=== PATIENT | male | born 1950 | race Caucasian/White ===

== ENCOUNTER 2016-12-11 13:57 | Observation (INO) | payer MEDICARE, OTHER ==
[2016-12-11] MEDS ORDERED: ALPRAZOLAM 0.5 MG TABLET PO ONE (14:19)
[2016-12-11] MEDS ORDERED: NITROGLYCERIN 2% OINTMENT 1 GM PACKET TP ONE ×2 (14:28→19:00)
--- NOTE | 2016-12-11 14:29 | ER Document Report ---
ED General - General Stated Complaint: CHEST PAIN Time Seen by Provider: 12/11/16 14:18 Mode of Arrival: Medic Information source: Patient Notes: This is a 66-year-old man with a history of coronary artery disease (stent placed in 2000), hypertension who is brought to the ER by ambulance after an episode of chest pain. The patient has been usual state of health until yesterday when he was cleaning his fish pond and he states he felt "lousy". Patient states that he had some retrosternal chest pain radiating into the neck associated with shortness of breath and generalized weakness. The patient states that he had these symptoms for approximately an hour and they spontaneously resolved. Patient states that he was out shopping today when he started feeling the same way and getting the same type of discomfort. He apparently had taken an old nitroglycerin tablet that he had since 2012 and went to a local urgent care. EKG at the urgent care showed frequent PVCs and the patient was treated with aspirin and a nitro spray and the patient states that the pain gradually resolved after the nitroglycerin spray. Currently, he denies any type of chest pain. TRAVEL OUTSIDE OF THE [place] IN LAST 30 DAYS: No - HPI Onset: Just prior to arrival Onset/Duration: Sudden Quality of pain: No pain Severity: None Pain Level: Denies Associated symptoms: denies: Chills, Fever, Shortness of breath Exacerbated by: Denies Relieved by: Denies Similar symptoms previously: No Recently seen / treated by doctor: No - Related Data Allergies/Adverse Reactions: Penicillins Allergy (Unknown, Verified 08/29/13 12:52) hives/swelling Home Medications: Current Home Medications Aspirin [Aspirin EC] 81 mg PO DAILY 12/11/16 [History] Atorvastatin Calcium [Lipitor 80 mg Tablet] 80 mg PO QHS 12/11/16 [History] Clopidogrel Bisulfate [Plavix 75 mg Tablet] 75 mg PO DAILY 12/11/16 [History] Lisinopril [Zestril] 10 mg PO DAILY 12/11/16 [History] Nitroglycerin [Nitrostat] 0.4 mg PO Q5M 12/11/16 [History] Triamterene/Hydrochlorothiazid [Triamterene-Hctz 37.5-25 mg Cp] 1 cap PO DAILY 12/11/16 [History] Past Medical History - General Information source: Patient - Social History Smoking Status: Never Smoker Cigarette use (# per day): No Chew tobacco use (# tins/day): No Frequency of alcohol use: None Drug Abuse: None Lives with: Family Family History: Reviewed & Not Pertinent Patient has suicidal ideation: No Patient has homicidal ideation: No - Past Medical History Cardiac Medical History: Reports: Hx Coronary Artery Disease, Hx Hypercholesterolemia, Hx Hypertension Pulmonary Medical History: Denies: Hx Tuberculosis Past Surgical History: Reports: Hx Cardiac Surgery - stent x1 - Immunizations Hx Diphtheria, Pertussis, Tetanus Vaccination: Yes Hx Pneumococcal Vaccination: 06/14/11 Review of Systems - Review of Systems Constitutional: denies: See HPI, Fever EENT: No symptoms reported Cardiovascular: See HPI Respiratory: No symptoms reported Gastrointestinal: No symptoms reported Genitourinary: No symptoms reported Male Genitourinary: No symptoms reported Musculoskeletal: No symptoms reported Skin: No symptoms reported Hematologic/Lymphatic: No symptoms reported Neurological/Psychological: No symptoms reported Physical Exam - Vital signs Vitals: Resp Pulse Ox 13 100 12/11/16 14:09 12/11/16 14:09 Notes: Physical exam: GENERAL: 66-year-old man, alert and oriented 3, no acute distress HEAD: Atraumatic, normocephalic. EYES: Pupils equal round and reactive to light, extraocular movements intact, sclera anicteric, conjunctiva are normal. ENT: TMs normal, nares patent, oropharynx clear without exudates. Moist mucous membranes. NECK: Normal range of motion, supple without lymphadenopathy or JVD. LUNGS: Breath sounds clear to auscultation bilaterally and equal. No wheezes rales or rhonchi. HEART: Regular rate and rhythm without murmurs, rubs or gallops. ABDOMEN: Soft, normoactive bowel sounds. No tenderness to palpation. No guarding, no rebound. No masses appreciated. EXTREMITIES: Normal range of motion, no pitting or edema. No clubbing or cyanosis. NEUROLOGICAL: Cranial nerves II through XII grossly intact. Normal speech, normal gait. PSYCH: Normal mood, normal affect. SKIN: Warm, Dry, normal turgor, no rashes or lesions noted. Course - Vital Signs Vital signs: Temp Pulse Resp BP Pulse Ox 97.7 F 55 L 19 88/52 L 98 12/12/16 00:00 12/12/16 00:00 12/12/16 00:00 12/12/16 00:00 12/12/16 00:00 - Laboratory Result Diagrams: 12/11/16 15:00 12/11/16 15:00 Laboratory results interpreted by me: 12/11/16 12/11/16 12/11/16 15:00 15:00 15:00 MCV 98 H Creatine Kinase 361 H CK-MB (CK-2) 7.57 H - Diagnostic Test Radiology reviewed: Image reviewed, Reports reviewed - Patient has no infiltrates - EKG Interpretation by Me Rate: Normal Rhythm: NSR - EKG shows normal sinus rhythm with a ventricular rate of 86, no acute ST-T wave changes, there are PVCs. Discharge - Discharge Clinical Impression: chest pain Condition: Stable Disposition: ADMITTED OBSERVATION Admitting Provider: Hospitalist Unit Admitted: Telemetry - [facility] [place]
--- NOTE | 2016-12-11 15:01 | RADIOLOGY REPORT (SQ) ---
EXAM DESCRIPTION: CHEST SINGLE VIEW COMPLETED DATE/TIME: 12/11/2016 2:46 pm REASON FOR STUDY: chest pain COMPARISON: 08/29/2013 EXAM PARAMETERS: NUMBER OF VIEWS: One view. TECHNIQUE: Single frontal radiographic view of the chest acquired. RADIATION DOSE: NA LIMITATIONS: None. FINDINGS: LUNGS AND PLEURA: No opacities, masses or pneumothorax. No pleural effusion. MEDIASTINUM AND HILAR STRUCTURES: No masses. Contour normal. HEART AND VASCULAR STRUCTURES: Heart normal in size. Normal vasculature. BONES: No acute findings. HARDWARE: None in the chest. OTHER: No other significant finding. IMPRESSION: NO ACUTE RADIOGRAPHIC FINDING IN THE CHEST. TECHNICAL DOCUMENTATION: JOB ID: [id number]
[2016-12-11 15:14] LABS: ABSOLUTE EOSINOPHILS # (AUTO) 0.1 10^3/uL (0.0-0.6); ABSOLUTE LYMPHOCYTES (AUTO) 1.2 10^3/uL (0.5-4.7); ABSOLUTE MONOCYTES (AUTO) 0.4 10^3/uL (0.1-1.4); ABSOLUTE NEUT (AUTO) 4.2 10^3/uL (1.7-8.2); BASOPHILS % (AUTO) 0.4 % (0-2); EOSINOPHILS % (AUTO) 0.9 % (0-6); HEMATOCRIT 42.4 % (37.9-51.0); HEMOGLOBIN 14.1 g/dL (13.5-17.0); HGB HCT DIFFERENCE -0.1; LYMPHOCYTES % (AUTO) 20.8 % (13-45); MEAN CORPUSCULAR HEMOGLOBIN 32.5 pg (27.0-33.4); MEAN CORPUSCULAR HGB CONC 33.4 g/dL (32.0-36.0); MEAN CORPUSCULAR VOLUME 98 fl (80-97); MONOCYTES % (AUTO) 6.6 % (3-13); RED BLOOD COUNT 4.35 10^6/uL (4.35-5.55); RED CELL DISTRIBUTION WIDTH 13.7 % (11.5-14.0); SEGMENTED NEUTROPHILS % (AUTO) 71.3 % (42-78); WHITE BLOOD COUNT 5.8 10^3/uL (4.0-10.5)
[2016-12-11 15:24] LABS: PROTHROMBIN TIME 13.6 SEC (11.4-15.4)
[2016-12-11 15:27] LABS: ALANINE AMINOTRANSFERASE 46 U/L (21-72); ALBUMIN 4.1 g/dL (3.5-5.0); ALKALINE PHOSPHATASE 41 U/L (38-126); ANION GAP 11 (5-19); ASPARTATE AMINO TRANSFERASE 30 U/L (17-59); BILIRUBIN,DIRECT 0.3 mg/dL (0.0-0.4); BILIRUBIN,TOTAL 0.6 mg/dL (0.2-1.3); BLOOD UREA NITROGEN 14 mg/dL (7-20); CALCIUM 9.1 mg/dL (8.4-10.2); CARBON DIOXIDE 23 mmol/L (22-30); CHLORIDE 105 mmol/L (98-107); CREATINE KINASE 361 U/L (55-170); CREATININE RESULT 0.61 mg/dL (0.52-1.25); GLUCOSE 104 mg/dL (75-110); POTASSIUM 3.8 mmol/L (3.6-5.0); SODIUM 138.8 mmol/L (137-145); TOTAL PROTEIN 6.8 g/dL (6.3-8.2)
[2016-12-11 15:38] LABS: CREATINE KINASE MB 7.57 ng/mL (<4.55); TROPONIN I 0.015 ng/mL
[2016-12-11] MEDS ORDERED: ACETAMINOPHEN 325 MG TABLET PO PRN (17:37)
[2016-12-11] MEDS ORDERED: ONDANSETRON HCL INJ/PF 4 MG/2 ML SDV IV PRN (17:42)
[2016-12-11] MEDS ORDERED: NITROGLYCERIN 0.4 MG/TAB 25 TAB/BOTTLE SL PRN (18:01)
--- NOTE | 2016-12-11 18:01 | PDOC H&P ---
History of Present Illness Admission Date/PCP: 12/11/16 16:39 ISHAN NICE MD Patient complains of: Chest pain History of Present Illness: MIC CROW is a 66 year old male, with history of coronary artery disease with stent placement was cleaning his aquarium yesterday and upon completing started to develop precordial chest pain without any radiation associated with some shortness of breath and nausea with generalized weakness and some mild dizziness. Patient went to rest and the symptoms resolved. There is no vomiting. There is no palpitation. The following morning the patient was able to go out to have some groceries done shopping for food and eventually started to develop the chest pain again. Patient went home and blood pressure was elevated with systolic in the 150 and diastolic in the 110. He could not bring his blood pressure down and therefore patient was brought to the emergency room for evaluation. Patient initially seen at an urgent care where the monitor shows premature ventricular contractions and therefore the patient was transferred to the hospital for further evaluation. In the emergency room CPK total was mildly elevated as well as the MB fraction but the troponin was negative. The patient was then referred for admission. Patient last known stress test was about a year ago. He is scheduled to have another stress test next month with Dr. Elena in [place]. Past Medical History Cardiac Medical History: Reports: Coronary Artery Disease, Hyperlipidema, Hypertension Pulmonary Medical History: Reports: Asthma Denies: Tuberculosis Past Surgical History Past Surgical History: Reports: Cardiac Catheterization, Other - Stent placement Social History Information Source: Patient Smoking Status: Never Smoker Frequency of Alcohol Use: None Hx Recreational Drug Use: No Drugs: None Hx Prescription Drug Abuse: No Family History Family History: CAD, Hypertension Parental Family History Reviewed: Yes Children Family History Reviewed: Yes Sibling(s) Family History Reviewed.: Yes Medication/Allergy Home Medications: Aspirin [Aspirin EC] 81 mg PO DAILY 12/11/16 Clopidogrel Bisulfate [Plavix 75 mg Tablet] 75 mg PO DAILY 12/11/16 Lisinopril [Zestril] 10 mg PO DAILY 12/11/16 Nitroglycerin [Nitrostat] 0.4 mg PO Q5M 12/11/16 Triamterene/Hydrochlorothiazid [Triamterene-Hctz 37.5-25 mg Cp] 1 cap PO DAILY 12/11/16 Allergies/Adverse Reactions: Penicillins Allergy (Unknown, Verified 03/18/14 12:52) hives/swelling Review of Systems Constitutional: PRESENT: weakness - Generalized. ABSENT: chills, fatigue, fever (s), headache(s), weight gain, weight loss Eyes: ABSENT: visual disturbances Ears: ABSENT: hearing changes Nose, Mouth, and Throat: ABSENT: headache(s), mouth pain, sore throat Cardiovascular: PRESENT: chest pain, palpitations - Occasional. ABSENT: dyspnea on exertion, edema, orthropnea Respiratory: ABSENT: cough, hemoptysis, sputum Gastrointestinal: PRESENT: nausea. ABSENT: abdominal pain, bloating, constipation, diarrhea, hematemesis, hematochezia, melena, vomiting Genitourinary: ABSENT: dysuria, hematuria Musculoskeletal: ABSENT: joint swelling Integumentary: ABSENT: pruritus, rash, wounds Neurological: ABSENT: abnormal gait, abnormal speech, confusion, dizziness, focal weakness, syncope Psychiatric: ABSENT: anxiety, depression, homidical ideation, suicidal ideation Endocrine: ABSENT: cold intolerance, heat intolerance, polydipsia, polyuria Hematologic/Lymphatic: ABSENT: easy bleeding, easy bruising Physical Exam Vital Signs: Temp Pulse Resp BP Pulse Ox 97.7 F 69 16 133/92 H 100 12/11/16 14:18 12/11/16 14:18 12/11/16 15:01 12/11/16 15:01 12/11/16 15:01 General appearance: PRESENT: no acute distress, cooperative, well-developed, well-nourished Head exam: PRESENT: atraumatic, normocephalic Eye exam: PRESENT: conjunctiva pink, EOMI, PERRLA. ABSENT: scleral icterus Ear exam: PRESENT: normal external ear exam. ABSENT: drainage Mouth exam: PRESENT: moist, neck supple, tongue midline Throat exam: ABSENT: post pharyngeal erythema, tonsillar erythema Neck exam: ABSENT: carotid bruit, JVD, lymphadenopathy, thyromegaly Respiratory exam: PRESENT: clear to auscultation romelia, unlabored. ABSENT: rales , rhonchi, wheezes Cardiovascular exam: PRESENT: RRR, +S1, +S2. ABSENT: diastolic murmur, gallop, rubs, systolic murmur Pulses: PRESENT: normal dorsalis pedis pul Vascular exam: PRESENT: normal capillary refill GI/Abdominal exam: PRESENT: normal bowel sounds, soft. ABSENT: distended, guarding, mass, organolmegaly, rebound, tenderness Rectal exam: PRESENT: deferred Extremities exam: PRESENT: full ROM. ABSENT: calf tenderness, clubbing, pedal edema Neurological exam: PRESENT: alert, awake, oriented to person, oriented to place , oriented to time, oriented to situation Psychiatric exam: PRESENT: appropriate affect, normal mood. ABSENT: homicidal ideation, suicidal ideation Skin exam: PRESENT: dry, intact, warm. ABSENT: cyanosis, rash Results Impressions: Chest X-Ray 12/11/16 14:18 IMPRESSION: NO ACUTE RADIOGRAPHIC FINDING IN THE CHEST. Assessment & Plan - Diagnosis (1) Chest pain Qualifiers: Chest pain type: unspecified Qualified Code(s): R07.9 - Chest pain, unspecified Is this a current diagnosis for this admission?: Yes (2) PVCs (premature ventricular contractions) Is this a current diagnosis for this admission?: Yes (3) Coronary artery disease Qualifiers: Coronary Disease-Associated Artery/Lesion type: [place] artery [place] vs. transplanted heart: [place] heart Associated angina: angina presence unspecified Qualified Code(s): I25.10 - Atherosclerotic heart disease of [place] coronary artery without angina pectoris Is this a current diagnosis for this admission?: Yes (4) Essential hypertension Is this a current diagnosis for this admission?: Yes (5) Hyperlipidemia Qualifiers: Hyperlipidemia type: unspecified Qualified Code(s): E78.5 - Hyperlipidemia, unspecified Is this a current diagnosis for this admission?: Yes (6) History of asthma Is this a current diagnosis for this admission?: Yes - Time Time Spent: 50 to 70 Minutes - Plan Summary Plan Summary: The patient will be admitted to observation. I will continue the aspirin and Plavix. I will add nitroglycerin. Supplemental oxygen and Lovenox for DVT prophylaxis. We will obtain a magnesium level. Give extra dose of potassium to bring level above 4. We will consult cardiology for further evaluation. Further testing depends in the initial evaluations outlined above.
[2016-12-11] MEDS ORDERED: POTASSIUM CHLORIDE 10 MEQ TABLET.SA PO ONE (18:30)
[2016-12-11] MEDS: DOCUSATE SODIUM 100 MG CAPSULE PO SCH (18:36)
--- NOTE | 2016-12-11 20:52 | EKG REPORT ---
SEVERITY:- ABNORMAL ECG - SINUS RHYTHM MULTIPLE VENTRICULAR PREMATURE COMPLEXES BORDERLINE PROLONGED QT INTERVAL : Confirmed by: Tobias Lindquist 11-Dec-2016 20:51:51
[2016-12-11] MEDS: NITROGLYCERIN 2% OINTMENT 1 GM PACKET TP SCH (21:36)
[2016-12-11 23:02] LABS: CREATINE KINASE MB 5.12 ng/mL (<4.55); TROPONIN I 0.013 ng/mL
[2016-12-12] MEDS ORDERED: NITROGLYCERIN 2% OINTMENT 1 GM PACKET TP SCH
[2016-12-12] MEDS: NITROGLYCERIN 2% OINTMENT 1 GM PACKET TP SCH ×2 (02:43→08:20)
[2016-12-12 03:41] LABS: CREATINE KINASE MB 4.08 ng/mL (<4.55); TROPONIN I 0.014 ng/mL
[2016-12-12] MEDS ORDERED: LANSOPRAZOLE 30 MG TAB.RAP.DR PO SCH (06:00)
[2016-12-12] MEDS: DOCUSATE SODIUM 100 MG CAPSULE PO SCH (09:12)
[2016-12-12] MEDS ORDERED: (PENDING PHARMACY ID) (Triamterene/Hydrochlorothiazid [Triamterene-Hctz 37.5-25 Mg Cp] 1 C PO SCH (10:00)
[2016-12-12] MEDS ORDERED: LISINOPRIL 10 MG TABLET PO SCH (10:00)
[2016-12-12] MEDS ORDERED: ASPIRIN 81 MG TABLET, ENT COATED PO SCH (10:00)
[2016-12-12] MEDS ORDERED: CLOPIDOGREL BISULFATE 75 MG TABLET PO SCH (10:00)
[2016-12-12] MEDS ORDERED: TRIAMTERENE/HYDROCHLOROTHIAZIDE 37.5-25 MG TABLET PO SCH (10:00)
[2016-12-12] MEDS ORDERED: ENOXAPARIN SODIUM INJ 40 MG/0.4 ML DISP.SYRIN SUBCUT SCH (10:00)
[2016-12-12 10:11] LABS: CREATINE KINASE MB 4.41 ng/mL (<4.55)
[2016-12-12 10:14] LABS: TROPONIN I < 0.012 ng/mL
[2016-12-12] MEDS ORDERED: MAGNESIUM OXIDE 400 MG TABLET PO ONE (12:12)
--- NOTE | 2016-12-12 12:18 | PDOC DISCHARGE SUMMARY ---
General - Admit/Disc Date/PCP Admission Date/Primary Care Provider: 12/11/16 17:37 ISHAN NICE MD Discharge Date: 12/12/16 - Discharge Diagnosis (1) Chest pain Is this a current diagnosis for this admission?: Yes (2) PVCs (premature ventricular contractions) Is this a current diagnosis for this admission?: Yes (3) Coronary artery disease Is this a current diagnosis for this admission?: Yes (4) Essential hypertension Is this a current diagnosis for this admission?: Yes (5) Hyperlipidemia Is this a current diagnosis for this admission?: Yes (6) History of asthma Is this a current diagnosis for this admission?: Yes - Additional Information Resuscitation Status: Full Code Discharge Diet: Cardiac Discharge Activity: Activity As Tolerated, Balance Activity w/Rest Home Medications: Aspirin [Aspirin EC] 81 mg PO DAILY 12/11/16 Atorvastatin Calcium [Lipitor 80 mg Tablet] 80 mg PO QHS 12/11/16 Clopidogrel Bisulfate [Plavix 75 mg Tablet] 75 mg PO DAILY 12/11/16 Lisinopril [Zestril] 10 mg PO DAILY 12/11/16 Nitroglycerin [Nitrostat 0.4 mg (1/150 Gr) Tabs 25/Bottle] 1 tab SL Q5MP PRN #1 bottle 12/12/16 Additional Information: Stress test as outpatient with Dr. Elena in 1-2 weeks. History of Present Illness Patient complains of: Chest pain History of Present Illness: MIC CROW is a 66 year old male, with history of coronary artery disease with stent placement was cleaning his aquarium yesterday and upon completing started to develop precordial chest pain without any radiation associated with some shortness of breath and nausea with generalized weakness and some mild dizziness. Patient went to rest and the symptoms resolved. There is no vomiting. There is no palpitation. The following morning the patient was able to go out to have some groceries done shopping for food and eventually started to develop the chest pain again. Patient went home and blood pressure was elevated with systolic in the 150 and diastolic in the 110. He could not bring his blood pressure down and therefore patient was brought to the emergency room for evaluation. Patient initially seen at an urgent care where the monitor shows premature ventricular contractions and therefore the patient was transferred to the hospital for further evaluation. In the emergency room CPK total was mildly elevated as well as the MB fraction but the troponin was negative. The patient was then referred for admission. Patient last known stress test was about a year ago. He is scheduled to have another stress test next month with Dr. Elena in [place]. Hospital Course Hospital Course: The patient was admitted to telemetry. The patient was given supplemental potassium. Patient's PVCs improved magnesium was 1.8 and the supplemental magnesium was likewise given. Serial cardiac enzymes were obtained and they were negative for myocardial infarction. Cardiology was consulted and recommended stress test on an outpatient basis and discontinuation of the diuretic. The patient's chest pain resolved. No significant arrhythmia recorded on the monitor. The rest of the hospital stays unremarkable. Patient advised to avoid heavy physical activity for now up until evaluated by his manager business information. Family at bedside who is agreeable with the plan. Physical Exam Vital Signs: Temp Pulse Resp BP Pulse Ox 97.8 F 50 L 18 123/86 H 100 12/12/16 08:14 12/12/16 08:14 12/12/16 08:14 12/12/16 08:14 12/12/16 08:14 Intake & Output 12/11/16 12/12/16 12/13/16 06:59 06:59 06:59 Intake Total 240 Balance 240 Weight 85.5 kg General appearance: PRESENT: no acute distress, cooperative Head exam: PRESENT: normocephalic Eye exam: PRESENT: EOMI Mouth exam: PRESENT: moist, neck supple Neck exam: ABSENT: JVD Respiratory exam: PRESENT: clear to auscultation romelia. ABSENT: rhonchi, wheezes Cardiovascular exam: PRESENT: RRR. ABSENT: gallop GI/Abdominal exam: PRESENT: normal bowel sounds, soft. ABSENT: distended, tenderness Extremities exam: ABSENT: pedal edema Neurological exam: PRESENT: alert, awake, oriented to person, oriented to place , oriented to time, oriented to situation Skin exam: PRESENT: dry, warm. ABSENT: cyanosis Results Laboratory Results: 12/11/16 12/11/16 12/12/16 22:00 22:00 03:07 Creatine Kinase 231 H 193 H CK-MB (CK-2) 5.12 H Troponin I 0.013 12/12/16 12/12/16 12/12/16 03:07 08:43 08:43 Creatine Kinase 188 H CK-MB (CK-2) 4.08 4.41 Troponin I 0.014 < 0.012 Impressions: Chest X-Ray 12/11/16 14:18 IMPRESSION: NO ACUTE RADIOGRAPHIC FINDING IN THE CHEST. Qualifiers PATEINT BEING DISCHARGED WITH ANY OF THE FOLLOWING DIAGNOSIS?: No Plan Discharge Plan: Follow-up with primary care physician in 1 week. Follow-up with manager business information in 1 week. Time Spent: Less than 30 Minutes
[2016-12-12 12:44] VITALS: BP 141/85
--- NOTE | 2016-12-12 13:46 | EKG REPORT ---
SEVERITY:- NORMAL ECG - SINUS RHYTHM : Confirmed by: Tobias Lindquist 12-Dec-2016 13:45:01
--- NOTE | 2016-12-13 01:08 | CONSULTATION REPORT E ---
Consultation Report NAME: MIC CROW : 1950 AGE: 66Y DATE: 12/12/2016 ROOM: 406 A TO: FRANSISCA ALEXANDER M.D. FROM: Requesting Physician REASON FOR CONSULTATION: Patient with throat tightness which he claims is similar to his prior anginal symptoms, which led to a stent placement, and bradycardiac and hypotension secondary to nitroglycerin. HISTORY: The patient is a 66-year-old male with known history of hypertension, who states that some years ago he had throat tightness, and subsequently workup led to him having a cardiac catheterization, and he states that he had a lesion in the bifurcation of the artery to the back of the heart and had a stent placement. Most likely, he had a stent to the distal RCA. Since then, the patient had been doing good. The patient states yesterday he went to the [employer] and went to the bank and subsequently was sitting at home when he had a throat tightness which lasted for about an hour. He also states that he had some dysphagia along with that, but that there was no shortness of breath, no diaphoresis, no palpitations, no dizziness. The patient states that these symptoms were similar to what he had when he had the stent in the coronary artery. He denies any palpitations, PND, orthopnea, leg edema, dizziness, syncope, or near syncope. The patient yesterday was given *------* nitroglycerin paste 0.5 grams to the chest wall, and the patient's heart rate went down to 40, and his blood pressure dropped to 80, suggesting a paradoxical reaction to nitroglycerin, but also noted the patient was dehydrated, since the patient is on triamterene. He denies any past history of CT. There is no TIA or CVA symptoms. There is no leg edema. Note, the patient's throat tightness, as per the patient, that he recollects that it did not increase with exertion. PAST MEDICAL HISTORY: Positive for hypertension. There is no history of diabetes mellitus or thyroid disease. There is no history of GI bleed, no history of peptic ulcer disease, no history of chronic kidney disease, no history of diverticulitis. No history of TIA or CVA. No history of anxiety or depression. Of note, the patient has a history of allergic asthma, but has not had an exacerbation in some time. He states he usually gets that when he is around people who smoke. As mentioned earlier, he had throat tightness which led to his cardiac workup, and he had a stent which, as per the patient's description, is in the distal RCA. PAST SURGICAL HISTORY: 1. Positive for the placement of rods and lumbar fusion in the lumbosacral region. 2. He also has had cardiac catheterization and stent placement. FAMILY HISTORY: Positive for coronary artery disease and hypertension. SOCIAL HISTORY: The patient never smoked. There is no history of ETOH abuse. CODE STATUS: The patient is a full code. His is his surrogate healthcare decision maker. ALLERGIES: THE PATIENT IS ALLERGIC TO PENICILLINS. MEDICATIONS: 1. Nitroglycerin 0.4 mg p.o. q. 5 minutes. 2. Nitroglycerin topical 1 gram, which has been stopped. 3. Potassium chloride 40 mEq p.o. x1. 4. Tylenol 650 mg p.o. q. 4 hours p.r.n. 5. Zofran 4 mg IV q. 4 hours p.r.n. 6. Colace 100 mg p.o. b.i.d. 7. Lansoprazole 30 mg p.o. q. 6:00 a.m. 8. Aspirin 81 mg p.o. daily. 9. Plavix 75 mg p.o. daily. 10. Lisinopril 10 mg p.o. daily. 11. Lovenox 40 mg subcutaneously daily. 12. Triamterene/hydrochlorothiazide 37.5/25 one capsule p.o. daily. 13. Magnesium oxide 80 mg p.o. x1. REVIEW OF SYSTEMS: CONSTITUTIONAL: Denies any fevers, chills, or rigors. There is no generalized weakness or fatigue. HEAD: No history of headache or head injury. No history of dizziness. EYES: No history of amblyopia or diplopia. No history of amaurosis fugax. EARS: No history of hearing loss. No history of vertigo. No tinnitus. No history of recurrent ear infections. NOSE: No history of deviated nasal septum. There is no nasal polyp. There is no history of nosebleeds. MOUTH: No history of altered taste sensation. No ulcers in the mouth. No bleeding from gums. THROAT: There is no *------* oropharynx. There are no exudates. SKIN: There are no skin rashes. There is no urticaria. There are no skin lesions. NECK: *------*pain or swelling in the neck. There is no lymphadenopathy. There is no goiter. LUNGS: No history of wheezing. 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 No history of sleep apnea. No history of hemoptysis. No history of hematemesis. No history of pulmonary embolism. No history of recent cough or sputum production. No history of recent wheezing. CARDIAC: History of hypertension. History of coronary artery disease. No history of CT. History of stent, most like to the distal right coronary artery. Symptoms of throat tightness which he says came before his anginal symptoms. There is no history of congestive heart failure. There is no PND, orthopnea, or leg edema. There is no history of palpitations, syncope, or near syncope. GASTROINTESTINAL: No history of peptic ulcer disease. No history of GI bleed. No history of fatty food intolerance. No history of abdominal pain. No history of cirrhosis. No history of jaundice. MUSCULOSKELETAL: The patient has low back pain but has no collagen vascular disease. RENAL: No history of chronic kidney disease. No history of hematuria, pyuria, or dysuria. No history of symptoms of UTI. ENDOCRINE: No history of diabetes mellitus. No history of thyroid disease. No history of polyuria. No history of heat or cold intolerance. CENTRAL NERVOUS SYSTEM: No history of sleep apnea. No history of headaches, migraines, or seizures. No history of TIA or CVA. No history of gait imbalance. PSYCHIATRIC: No history of anxiety or depression. No history of suicidal ideation. No history of homicidal ideation. VASCULAR: No history of calf or buttock claudication. No history of DVT. HEMATOLOGICAL: No history of bleeding diathesis. No history of clotting disorders. The rest of the review of systems was negative for any fever, chills, or rigors. PHYSICAL EXAMINATION: GENERAL: The patient is well built and well nourished. At present, no acute distress. VITAL SIGNS: He is afebrile with a temperature of 97.8 degrees Fahrenheit. His pulse is 51 beats per minute, blood pressure is 123/86, respirations are 18 per minute, and O2 sat is 100% on room air. HEENT: Head is atraumatic, normocephalic. Eyes: Pupils are equal, round, and regular, reactive to light and accommodation. Extraocular movements are normal. There is no conjunctival pallor. There is no scleral icterus. Ears: Tympanic membranes are intact. External auditory canals are clear. There is no lesions of the pinnae. Nose: There is no deviated nasal septum. There is no inflammation of the nasal mucous membrane. There are no nasal polyps. Mouth: Mucous membranes of the mouth are dry. Tongue is dry. He has no ulcers. There is no bleeding from the gums. Throat: There is no redness of the oropharynx. There are no exudates. SKIN: There are no skin rashes. There are no skin lesions. NECK: Supple. There is no JVD. Carotids are equal. There is no bruit. There is no lymphadenopathy. There is no goiter. Trachea is central. LUNGS: Clear to auscultation and percussion without any axillary muscles of special use. There is no chest-wall tenderness. Lungs are without any rhonchi, rales, or wheezing. HEART: S1 and S2 are heard normally. S1 is of normal intensity. There is no S3 gallop. There is no S4 gallop. There is a systolic murmur in the left sternal border and the apex. There is no rub. ABDOMEN: Soft, nontender. There is no hepatosplenomegaly. Bowel sounds are well heard. There are no tender areas or masses. There is no rebound, guarding, or rigidity. EXTREMITIES: Femorals are well felt. Leg pulses are well felt. There is no pedal edema. There is no DVT or cellulitis. There is no cyanosis or clubbing. Capillary refill is normal. CENTRAL NERVOUS SYSTEM: The patient is conscious, awake, alert, oriented x3, with no focal deficits. PSYCHIATRIC: The patient's judgement and insight are intact. His affect is normal. DIAGNOSTIC STUDIES: The patient's chest x-ray is negative for any acute process. I have reviewed the x-ray myself. The patient's EKG has been reviewed by myself. It shows sinus rhythm, multiple PVCs, borderline prolonged QT interval. No acute changes. His EKG done today is sinus rhythm, within normal limits. The patient's white count is 5800, hemoglobin is 14.1, hematocrit is 42.4, and his platelet count is 215,000. The patient's protime is 13.6, INR is 0.97. The patient's CPK-MB was initially high at 5.12, but his troponin-I is negative x3. The rest of the CPK-MB x2 is negative. The patient's sodium is 138.8, potassium 3.8, chloride is 105, CO2 is 23. The patient's BUN is 14, creatinine 0.61, GFR is greater than 60. Glucose is 104, calcium is 9.1, magnesium is 1.8. His liver function tests are normal. His total protein is 6.8, albumin is 4.1. IMPRESSION: 1. Atypical symptoms, throat tightness, which the patient claims to be what he had when he had the stent a few years ago. 2. Dehydration. 3. Bradycardia and hypotension secondary to *------*, most likely secondary to patient being dehydrated, but cannot entirely exclude paradoxical reaction to nitroglycerin. 4. Coronary artery disease. No history of myocardial infarction. 5. Coronary artery disease with history of stent placement, most likely the right coronary artery. 6. Hypertension, well controlled. 7. Hyperlipidemia. 8. Chronic back pain. RECOMMENDATION: I will stop the patient's triamterene, since the patient is dehydrated. Would recommend continuing the patient's aspirin and Plavix. Continue the patient's lisinopril. In view of the patient's bradycardia and hypotension, would not use nitrate products. Would give the patient sublingual nitroglycerin; the patient has been asked to sit down and take nitroglycerin 1 sublingually q. 5 minutes, and if he has to take 2 or more, he needs to report to the emergency room. Also, I have given him my cell number, until he can contact his topographical surveyor Dr. Elena in [facility]. The patient has an appointment for a stress test at the end of December. I have asked the patient and family to contact Dr. Elena and see if he can perform this stress test. Also, I will try to get a hold of Dr. Elena if I can on Wednesday, and explain to him to see if he can do the stress test. Note, the patient was seen at 9:00 a.m. Forty minutes were spent on the patient, more than 50% of the time spent on direct patient care. Medications have been reviewed and adjusted. Also, coordination of care done with other caregiving providers, and formulated a care plan. The patient is desirous of going home; I let him go home. Note that this case involved highly-complex medical decision making, in view of the bradycardia, the patient's atypical chest symptoms, which he claims to be his anginal symptoms, and with a history of a right coronary artery stent most likely. I cannot be sure about the location of the stent. All of the above discussed with the patient and patient's family, all questions answered. Will sign off the case. Thanking you. DICTATING PHYSICIAN: FRANSISCA ALEXANDER M.D. [id number] Y#: [id number] ID: [id number] JOB#: [id number] ACCT: [id number] cc:FRANSISCA ALEXANDER M.D. >
== END 2016-12-12 12:50 | disposition home or self-care (01) ==
LOC: ER 13:57 → EH 16:39 → UNDOADMOB 16:39 → EH 17:37 → 4N 19:22
DX: R07.2 Precordial pain (principal); I49.3 Ventricular premature depolarization; I25.10 Atherosclerotic heart disease of native coronary artery without angina pectoris; I10 Essential (primary) hypertension; E78.5 Hyperlipidemia, unspecified; R13.10 Dysphagia, unspecified; E86.0 Dehydration; I95.2 Hypotension due to drugs; R00.1 Bradycardia, unspecified; T46.3X5A Adverse effect of coronary vasodilators, initial encounter; Y92.239 Unspecified place in hospital as the place of occurrence of the external cause; Z87.09 Personal history of other diseases of the respiratory system; G89.29 Other chronic pain; M54.5 Low back pain; R19.8 Other specified symptoms and signs involving the digestive system and abdomen; Z79.899 Other long term (current) drug therapy; Z95.5 Presence of coronary angioplasty implant and graft; Z79.82 Long term (current) use of aspirin; Z82.49 Family history of ischemic heart disease and other diseases of the circulatory system; Z88.0 Allergy status to penicillin; Z98.1 Arthrodesis status
CPT/HCPCS: 93005 ×2; 99285; 36415 ×2; 82553 ×2; 82550 ×2; 83735; 85025; 85610; 80053; 84484 ×2; 71010; 93010 ×2; G0378 ×3; A9270 ×10; J1650; J3490 ×2

== ENCOUNTER → 2017-09-24 | Outpatient (CLI) | payer MEDICARE, OTHER ==
[2017-09-24 13:25] LABS: HEMATOCRIT 42.6 % (37.9-51.0); HEMOGLOBIN 14.3 g/dL (13.5-17.0); MEAN CORPUSCULAR HEMOGLOBIN 33.1 pg (27.0-33.4); MEAN CORPUSCULAR HGB CONC 33.7 g/dL (32.0-36.0); MEAN CORPUSCULAR VOLUME 98 fl (80-97); PLATELET COUNT 238 10^3/uL (150-450); RED BLOOD COUNT 4.33 10^6/uL (4.35-5.55); RED CELL DISTRIBUTION WIDTH 14.2 % (11.5-14.0); WHITE BLOOD COUNT 4.4 10^3/uL (4.0-10.5)
[2017-09-24 13:48] LABS: ALANINE AMINOTRANSFERASE 49 U/L (21-72); ALBUMIN 4.5 g/dL (3.5-5.0); ALKALINE PHOSPHATASE 35 U/L (38-126); ANION GAP 11 (5-19); ASPARTATE AMINO TRANSFERASE 31 U/L (17-59); BILIRUBIN,DIRECT 0.3 mg/dL (0.0-0.4); BILIRUBIN,TOTAL 0.7 mg/dL (0.2-1.3); BLOOD UREA NITROGEN 12 mg/dL (7-20); CARBON DIOXIDE 28 mmol/L (22-30); CHLORIDE 104 mmol/L (98-107); CHOLESTEROL 164.81 mg/dL (0-200); CREATINE KINASE 261 U/L (55-170); GLUCOSE 108 mg/dL (75-110); POTASSIUM 4.3 mmol/L (3.6-5.0); SODIUM 143.2 mmol/L (137-145); TOTAL PROTEIN 7.3 g/dL (6.3-8.2); TRIGLYCERIDES 66 mg/dL (<150)
[2017-09-24 13:59] LABS: DIRECT LDL 77 mg/dL (<100)
== END ==
LOC: OD 12:29
PROVIDERS: ATTEND Obstetrics & Gynecology
DX: E78.5 Hyperlipidemia, unspecified (principal); I10 Essential (primary) hypertension; I25.2 Old myocardial infarction; Z79.899 Other long term (current) drug therapy
CPT/HCPCS: 36415; 80053; 80061; 82550; 85027

== ENCOUNTER → 2018-12-05 | Outpatient (CLI) | payer MEDICARE, OTHER ==
[2018-12-05 11:55] LABS: ABSOLUTE LYMPHOCYTES (AUTO) 1.2 10^3/uL (0.5-4.7); ABSOLUTE MONOCYTES (AUTO) 0.4 10^3/uL (0.1-1.4); ABSOLUTE NEUT (AUTO) 2.3 10^3/uL (1.7-8.2); BASOPHILS % (AUTO) 0.4 % (0-2); EOSINOPHILS % (AUTO) 1.1 % (0-6); HEMOGLOBIN 15.1 g/dL (13.5-17.0); LYMPHOCYTES % (AUTO) 29.4 % (13-45); MEAN CORPUSCULAR HEMOGLOBIN 33.5 pg (27.0-33.4); MEAN CORPUSCULAR HGB CONC 34.2 g/dL (32.0-36.0); MEAN CORPUSCULAR VOLUME 98 fl (80-97); MONOCYTES % (AUTO) 10.4 % (3-13); PLATELET COUNT 230 10^3/uL (150-450); RED BLOOD COUNT 4.49 10^6/uL (4.35-5.55); RED CELL DISTRIBUTION WIDTH 14.8 % (11.5-14.0); SEGMENTED NEUTROPHILS % (AUTO) 58.7 % (42-78); TOTAL CELLS COUNTED % (AUTO) 100 %; WHITE BLOOD COUNT 3.9 10^3/uL (4.0-10.5)
[2018-12-05 12:19] LABS: ALANINE AMINOTRANSFERASE 43 U/L (21-72); ALBUMIN 4.8 g/dL (3.5-5.0); ALKALINE PHOSPHATASE 39 U/L (38-126); ANION GAP 9 (5-19); ASPARTATE AMINO TRANSFERASE 32 U/L (17-59); BILIRUBIN,DIRECT 0.3 mg/dL (0.0-0.4); BILIRUBIN,TOTAL 0.5 mg/dL (0.2-1.3); BLOOD UREA NITROGEN 14 mg/dL (7-20); CALCIUM 10.1 mg/dL (8.4-10.2); CARBON DIOXIDE 29 mmol/L (22-30); CHLORIDE 103 mmol/L (98-107); GLUCOSE 142 mg/dL (75-110); POTASSIUM 4.1 mmol/L (3.6-5.0); SODIUM 140.7 mmol/L (137-145); TOTAL PROTEIN 7.7 g/dL (6.3-8.2)
--- NOTE | 2018-12-05 12:43 | RADIOLOGY REPORT (SQ) ---
EXAM DESCRIPTION: CHEST PA/LATERAL COMPLETED DATE/TIME: 12/05/2018 11:57 am REASON FOR STUDY: CHEST PAIN COMPARISON: 08/29/2013 TECHNIQUE: Frontal and lateral radiographic views of the chest acquired. NUMBER OF VIEWS: Two view. LIMITATIONS: None. FINDINGS: LUNGS AND PLEURA: No acute opacities, masses or pneumothorax. No pleural effusion. MEDIASTINUM AND HILAR STRUCTURES: No masses or contour abnormalities. HEART AND VASCULAR STRUCTURES: Heart normal size. No evidence for failure. BONES: No acute findings. HARDWARE: None in the chest. OTHER: No other significant finding. IMPRESSION: No acute findings. TECHNICAL DOCUMENTATION: JOB ID: [id number] [place]-72 2010 [employer]- All Rights Reserved Reading location - IP/workstation name: [email or web address]
== END ==
LOC: OD 11:08
PROVIDERS: ATTEND Obstetrics & Gynecology
DX: R07.9 Chest pain, unspecified (principal); I49.3 Ventricular premature depolarization; I10 Essential (primary) hypertension; R11.0 Nausea; Z79.899 Other long term (current) drug therapy
CPT/HCPCS: 36415; 71046; 80053; 84443; 84484; 85025; 85379